=== PATIENT | male | born 1980 | race Caucasian/White ===

== ENCOUNTER 2016-06-27 17:02 | Emergency (ER) | payer SELFPAY ==
[~2016-06-27] VITALS: Ht 175.3 cm; Wt 81.6 kg
[2016-06-27] MEDS ORDERED: CYCLOBENZAPRINE 10 MG (FLEXERIL) TAB PO STA (18:49)
[2016-06-27 19:45] VITALS: BP 135/84
--- NOTE | 2016-06-27 20:17 | ED Back Pain ---
General Chief Complaint: Back Problems Stated Complaint: BACK PAIN Nursing Triage Note: PT REPORTS MID BACK PAIN FOR SEVERAL DAYS WITH WORSENING TODAY. HE C/O TINGLING DOWN BOTH LEGS AND GROIN. HE DENIES TROUBLES VOIDING. Nursing Sepsis Screen: No Definite Risk History of Present Illness Time Seen by Provider: 18:30 Initial Comments Patient reports low back pain with bilateral leg symptoms. Denies incontinence or retention. Patient smells of ETOH, though he denies drinking today he does report he drinks on a daily basis. Timing/Duration: 3-4 Days Severity: Mild Pain/Injury Location: Back Radiation: Buttocks, Upper Legs Method of Injury: Unknown Modifying Factors: Improves With Pain Medication, Improves With Rest Associated Symptoms: denies symptoms, muscle spasms, No numbness in legs/feet, tingling in legs/feet, lower back pain, No loss of bladder control, No loss of bowel control Allergies and Home Medications Allergies Coded Allergies: acetaminophen (Verified Allergy, Mild, 06/27/16) naproxen (Verified Allergy, Mild, 06/27/16) Constitutional: no symptoms reported, see HPI EENTM: no symptoms reported, see HPI Respiratory: no symptoms reported, see HPI Cardiovascular: no symptoms reported, see HPI Gastrointestinal: no symptoms reported, see HPI Genitourinary: no symptoms reported, see HPI Musculoskeletal: see HPI, back pain Skin: no symptoms reported, see HPI Psychiatric/Neurological: No Symptoms Reported, See HPI All Other Systems Reviewed Negative Unless Noted: Yes Past Urldics-Xsmrps-[place] Hx Patient Social History Alcohol Use: Occasionally Uses Recreational Drug Use: No Smoking Status: Current Everyday Smoker Type Used: Cigarettes 2nd Hand Smoke Exposure: Yes Recent Foreign Travel: No Contact w/Someone Who Travel: No Recent Infectious Disease Expo: No Recent Hopitalizations: No Seasonal Allergies Seasonal Allergies: No Surgeries HX Surgeries: Yes Surgeries: Eye Surgery, Orthopedic Respiratory Hx Respiratory Disorders: No Cardiovascular Hx Cardiac Disorders: Yes (TACHYCARDIA) Reviewed Nursing Assessment Reviewed/Agree w Nursing PMH: Yes Physical Exam Vital Signs Vital Sign - Last 12Hours 06/27/16 17:31 Temp 97.6 Pulse 95 Resp 16 B/P (MAP) 135/84 Pulse Ox 96 O2 Delivery Room Air Capillary Refill : Less Than 3 Seconds General Appearance: No Apparent Distress Neck: Full Range of Motion, Normal Inspection, Non Tender, Supple Cardiovascular: Regular Rate, Rhythm, No Murmur Respiratory: Chest Non Tender, Lungs Clear Gastrointestinal: Normal Bowel Sounds, Non Tender, Soft Back: Normal Inspection, No CVA Tenderness, No Vertebral Tenderness, Decreased Range of Motion, Muscle Spasm (left paraspinal muscles), No Vertebral Tenderness , Other (power V/V L4 to S1, negative straight leg raising sign bilaterally.) Extremity: Normal Capillary Refill, Normal Inspection, Normal Range of Motion, No Pedal Edema Neurologic/Psychiatric: Alert, Oriented x3, No Motor/Sensory Deficits, Normal Mood/Affect Skin: Normal Color, Warm/Dry Progress/Results/Core Measures Results/Orders My Orders Orders - DARYL WILSON Cyclobenzaprine Tablet (Flexeril Tablet) (06/27/16 18:49) Tramadol Tablet (Ultram Tablet) (06/27/16 18:49) Vital Signs/I&O Vital Sign - Last 12Hours 06/27/16 17:31 Temp 97.6 Pulse 95 Resp 16 B/P (MAP) 135/84 Pulse Ox 96 O2 Delivery Room Air Blood Pressure Mean: 101 Progress Note : Time: 18:30 Progress Note Initial evaluation completed, recommended trial of Flexeril 10 mg and tramadol 50 mg by mouth. Patient agreed with this treatment plan 1930 patient ambulated out of room, past nurse's station without stopping. Talked patient on sidewalk outside of hospital, he reports that he wants to return home and he no longer is seeking treatment for his back at this time. Offered sort the patient returned to hospital for discharge instructions and prescriptions if needed, he declined and left AMA. Departure Impression Impression: Primary Impression: Lumbar radiculopathy Additional Impression: Back pain Qualified Codes: M54.42 - Lumbago with sciatica, left side; M54.41 - Lumbago with sciatica, right side Disposition: AGAINST MEDICAL ADVICE Condition: Against Medical Advice Departure-Patient Inst. Referrals: SHERYL RODRÍGUEZ MD (PCP) Primary Care Physician DARYL WILSON Jun 27, 2016 20:17
== END 2016-06-27 19:45 | disposition left against medical advice (07) ==
LOC: ER 17:06
DX: M54.16 Radiculopathy, lumbar region (principal); F17.210 Nicotine dependence, cigarettes, uncomplicated
CPT/HCPCS: 99281